=== PATIENT | male | born 1940 | race Caucasian/White ===

== ENCOUNTER 2024-06-22 06:44 | Day surgery (SDC) | payer MEDICARE, OTHER ==
[2024-06-22] VITALS (9 sets, daily range): BP systolic 130–165; BP diastolic 55–83
[~2024-06-22] VITALS: Ht 182.9 cm; Wt 117.0 kg
[~2024-06-22 06:44] MED LIST: ALLO100 PO; ALPHA LIPOIC A600 MG PO; AMLO10 PO; ATOR10 PO; CHLO25B PO; Calcium Carbon500 MG PO; FLUO.01TC; GABA100 PO; IBUP200 PO; LISI20 PO; METAMUCIL; MULTIVITAMIN; OMEP20ER PO; SAM-E200 M1 PO; SILD50TA PO; TURMERIC538 MG PO; VITAMIN B-122000 MC1 PO; VITAMIN D5000 UNIT PO; ZYRTEC10 M4 PO
[2024-06-22] MEDS ORDERED: NS 1,000 ML IV ONE ×3 (07:27→09:46)
[2024-06-22] MEDS ORDERED: NS 500 ML IV ONE (07:27)
[2024-06-22] MEDS ORDERED: Heparin Sodium 1000 Units/ML 10ML MDV ONE ×4 (07:27→11:12)
[2024-06-22 07:42] LABS: BASOPHILS ABSOLUTE AUTO 0.09 K/mm3 (0.00-0.23); BASOPHILS PERCENT AUTO 1 % (0-2); EOSINOPHILS ABSOLUTE AUTO 0.17 K/mm3 (0.00-0.68); EOSINOPHILS PERCENT AUTO 2 % (0-6); Hematocrit 38.7 % (37.0-53.0); Hemoglobin 13.5 g/dL (13.5-17.5); IMMATURE GRAN ABSOLUTE AUTO 0.03 K/mm3 (0.00-0.10); IMMATURE GRAN PERCENT AUTO 0 % (0-1); LYMPHOCYTES ABSOLUTE AUTO 1.51 K/mm3 (0.84-5.20); LYMPHOCYTES PERCENT AUTO 17 % (21-46); MONOCYTES ABSOLUTE AUTO 0.77 K/mm3 (0.16-1.47); MONOCYTES PERCENT AUTO 9 % (4-13); Mean Corpuscular HGB 29.8 pg (26.0-34.0); Mean Corpuscular HGB Conc 34.9 g/dL (31.5-36.5); Mean Corpuscular Volume 85 fL (80-100); Mean Platelet Volume 9.8 fL (9.1-12.4); NEUTROPHILS ABSOLUTE AUTO 6.41 K/mm3 (1.96-9.15); NEUTROPHILS PERCENT AUTO 71 % (41-73); Platelet Count 312 K/mm3 (150-400); RDW Coefficient Variation 12.9 % (11.7-14.2); Red Blood Cell Count 4.53 M/mm3 (4.30-5.90); White Blood Cell Count 8.98 K/mm3 (4.00-11.30)
[2024-06-22 07:45] LABS: International Normalized Ratio 1.01; Prothrombin Time Results 10.8 Sec (9.7-11.5)
[2024-06-22 07:49] LABS: Calcium, Blood 10.5 mg/dL (8.5-10.1); Creatinine, Blood 1.11 mg/dL (0.60-1.20); Potassium, Blood 3.6 mmol/L (3.5-5.5)
[2024-06-22] MEDS ORDERED: Nitroglycerin 2 MG/20 ML BTL ONE (08:58)
[2024-06-22] MEDS ORDERED: Protamine Sulfate 50 MG Amp ONE (11:21)
--- NOTE | 2024-06-22 11:55 | NUR ---
pt back to recovery from lab. groin soft and non-tender per pt. no bleeding noted.
--- NOTE | 2024-06-22 12:02 | NUR ---
anesthesia record in chart.
[2024-06-22] MEDS ORDERED: Clopidogrel Bisulfate 300 MG Cap ONE (12:07)
[2024-06-22] MEDS ORDERED: ASPI81CH PO (12:17)
[2024-06-22] MEDS ORDERED: CLOP75 PO (12:17)
--- NOTE | 2024-06-22 12:18 | NUR ---
dr stout at bedside discussing procedure and future plan of care w/ pt.
--- NOTE | 2024-06-22 12:19 | NUR ---
l groin site and r foot site both are soft and non-tender per pt. no bleeding noted at either site.
--- NOTE | 2024-06-22 12:45 | NUR ---
Pt hob elevated 15 degrees due to back pain. pt reports relief, groin site reassessed with no changes at this time. pt family at bedside refreshments offered.
[2024-06-22] MEDS ORDERED: ePHEDrine Sulfate 50 MG/ML 1ML Injection IV ONE (13:22)
--- NOTE | 2024-06-22 13:30 | NUR ---
Pt hob elevate to 30 degrees, pt reports he has to urinate however does not feel he can do so laying down, male purewick placed for pt comfort. Pt. Groin site remains wnl unchange from previous assessments, Right DP access unchanged as well, foot warm to touch.
--- NOTE | 2024-06-22 14:30 | NUR ---
PT UNABLE TO VOID SITTING UP IN BED, REPORTING DISCOMFORT INCREASING. PT ASSISTED TO DANGLE AT BEDSIDE PER REQUEST TO ATTEMPT TO VOID. PT REFUSING STRAIGHT CATHETER FOR RELIEF AT THIS TIME. L GROIN SITE AND RIGHT DP SITE ASSESSED AFTER 2 PERSON ASSIST TO DANGLE AND REMAIN UNCHANGED. PT. REPORTS SIGNIFICANT BACK PAIN RELIEF ( HX OF BACK PAIN) AND WAS ABLE TO VOID SMALL AMOUNT, HOWEVER CONTINUES TO STRUGGLE TO EMPTY BLADDER. PT REQUESTED TO SITE AT BEDSIDE FOR A WHILE TO ATTEMPT TO VOID.
--- NOTE | 2024-06-22 15:20 | NUR ---
PT ASSISTED TO STAND AT BEDSIDE WITH WALKER, ABLE TO VOID MORE ONCE STANDING NOW A TOTAL OF 200CC OF URINE OUT. PT. VOIDING IN SMALL AMOUNTS. REQUESTED TO STAY STANDING. PT. SITES REMAIN UNCHANGED FROM PREVIOUS ASSESSMENT. VSS.
--- NOTE | 2024-06-22 16:00 | NUR ---
pt able to stand and void 500cc of urine. Pt. reports significant relief, no further pain. Pt. Left groin site remains wnl, unchnaged from initial assessment and Right foot wnl as well. Pt. IV removed, catheter intact. Pt vss remain stable. PT. discharge instructions reviewed. Dr. stout in to talk wiht pt regarding allergy to aspirin. Pt is unable to recall allergy but thought it might have been an upset stomach. Plan is for pt to attempt aspirin and plavix and if upset stomach occcurs call the office for Xarelto 2.5 mg bid prescription. pt and pt verbalized understanding. PT able to get dressed with stand by assist. Office to call pt to schedule follow up appointment. vss upon discharge. Pt and brother in law to drive pt home.
== END 2024-06-22 16:33 | disposition home or self-care (01) ==
LOC: MHTC 06:44
PROVIDERS: Student in an Organized Health Care Education/Training Program
DX: I70.221 Atherosclerosis of native arteries of extremities with rest pain, right leg (principal); I10 Essential (primary) hypertension; K21.9 Gastro-esophageal reflux disease without esophagitis; E78.5 Hyperlipidemia, unspecified; Z87.891 Personal history of nicotine dependence; Z88.6 Allergy status to analgesic agent; Z88.8 Allergy status to other drugs, medicaments and biological substances; Z79.899 Other long term (current) drug therapy
CPT/HCPCS: 37252; 76937; 80048; 85025; 85347; 85610; A9270; C1725; C1753; C1769; C1874; C1887; C1894; C2623; J1644; J2720; J7030; J7050; Q9967